=== PATIENT | female | born 1960 | race Caucasian/White ===

== ENCOUNTER → 2024-09-03 | Outpatient (CLI) | payer MEDICARE, SELFPAY ==
--- NOTE | 2024-09-03 07:24 | MRI_ITS ---
PROCEDURE: SPINE THORACIC W/WO CONTRAST TECHNIQUE: Thoracic spine MRI without and with intravenous gadolinium-based contrast. COMPARISON: April 01, 2024; July 29, 2024 FINDINGS: Vertebrae: There is a chronic vertebral compression fracture at T4 with approximately 50% loss in vertebral body height. There is protrusion of the posterior cortex causing moderate spinal canal stenosis and [id number] stenosis of the right lateral recess. A vertebral hemangioma is noted at T10. The bone marrow signal is otherwise unremarkable with mild Modic changes at the inferior endplate of T10. Alignment: Normal. No spondylolisthesis. Spinal Cord: There is some mass effect on the spinal cord at the T4 level due to chronic posterior buckling of the vertebral fracture at this level. There is no abnormal cord signal. Disc spaces: Mild multilevel degenerative changes are present with no significant neural foraminal or spinal canal stenosis due to degenerative disease. Paraspinal Tissues: Unremarkable. Postcontrast images: No abnormal enhancement. MRI/Spine Thoracic W/WO Contrast IMPRESSION: 1. Chronic vertebral compression fracture at T4 with buckling of the posterior cortex causing moderate spinal canal stenosis, [id number] right lateral recess stenosis and mild mass effect on the co rd. 2. No abnormal cord signal or enhancement. Reading Location: [facility]
== END | disposition home or self-care (01) ==
PROVIDERS: PCP Internal Medicine; Referring Provider Orthopaedic Surgery Orthopaedic Surgery of the Spine; Visit Provider Orthopaedic Surgery Orthopaedic Surgery of the Spine
DX: M48.54XA Collapsed vertebra, not elsewhere classified, thoracic region, initial encounter for fracture (principal)
CPT/HCPCS: 72157; A9575